=== PATIENT | female | born 2000 | race Two or more races ===

== ENCOUNTER 2023-07-24 18:21 | Emergency (ER) | payer BC ==
[~2023-07-24] VITALS: Ht 167.6 cm; Wt 104.3 kg
[2023-07-24] MEDS ORDERED: ACID REDUCER20 M1 (18:30)
[2023-07-24 20:10] LABS: HEMATOCRIT 32.2 % (36.0-45.00); HEMOGLOBIN 10.5 g/dL (12.0-15.00); MEAN CELL VOLUME 64.2 fL (80.00-100.00); MEAN CORPUSCULAR HGB CONC 32.7 g/dl (32.0-36.0); PLATELET COUNT 368 K/uL (150-450); RED BLOOD COUNT 5.02 M/uL (4.00-6.00); RED CELL DISTRIBUTION WIDTH 19.1 % (11.5-14.5)
== END 2023-07-24 21:24 | disposition home or self-care (01) ==
LOC: ER 18:21
PROVIDERS: General Practice
DX: O20.8 Other hemorrhage in early pregnancy (principal); Z3A.01 Less than 8 weeks gestation of pregnancy; I10 Essential (primary) hypertension